=== PATIENT | female | born 1960 | race Caucasian/White ===

== ENCOUNTER 2019-01-01 14:16 | Emergency (ER) | payer OTHER ==
[~2019-01-01] VITALS: Ht 162.6 cm; Wt 59.4 kg
[2019-01-01 14:21] VITALS: BP 158/79
[2019-01-01] MEDS ORDERED: ZOCOR20 MG PO (14:24)
[2019-01-01] MEDS ORDERED: PRINIVIL20 M1 PO (14:24)
[2019-01-01] MEDS ORDERED: XANAX 0.5 MG0.5 MG PO (14:25)
[2019-01-01] MEDS ORDERED: MOBIC7.5 MG PO (14:25)
[2019-01-01] MEDS ORDERED: VIBERZI75 MG PO (14:25)
== END 2019-01-01 14:34 | disposition home or self-care (01) ==
LOC: M.ERS 14:16
DX: S01.81XD Laceration without foreign body of other part of head, subsequent encounter (principal); Z98.890 Other specified postprocedural states; X58.XXXD Exposure to other specified factors, subsequent encounter

== ENCOUNTER 2020-01-12 15:56 | Emergency (ER) | payer OTHER ==
[~2020-01-12] VITALS: Ht 165.1 cm; Wt 57.9 kg
[~2020-01-12 15:56] MED LIST: MOBIC7.5 MG PO; PRINIVIL20 M1 PO; VIBERZI75 MG PO; XANAX 0.5 MG0.5 MG PO; ZOCOR20 MG PO
[2020-01-12] MEDS ORDERED: ASA81BEC PO (16:16)
[2020-01-12] MEDS ORDERED: PERCOCET 5-3251 EACH PO (17:19)
[2020-01-12 17:56] VITALS: BP 161/77
== END 2020-01-12 17:57 | disposition home or self-care (01) ==
LOC: M.ERS 15:56
DX: S42.291A Other displaced fracture of upper end of right humerus, initial encounter for closed fracture (principal); Z98.890 Other specified postprocedural states; W01.0XXA Fall on same level from slipping, tripping and stumbling without subsequent striking against object, initial encounter; Y93.89 Activity, other specified; Y92.89 Other specified places as the place of occurrence of the external cause; Y99.8 Other external cause status